=== PATIENT | female | born 1995 | race American Indian/Alaskan Native ===

== ENCOUNTER 2018-08-20 10:18 | Emergency (ER) | payer SELFPAY ==
[2018-08-20 10:46] LABS: Hematocrit 21.4 % (30.3-42.9); Hemoglobin 7.6 gm/dl (10.1-14.3); Mean Corpuscular HGB Conc 36 % (30-34); Mean Corpuscular Volume 88 fl (79-97); Platelet Count 500 K/mm3 (140-440); Red Blood Count 2.45 M/mm3 (3.65-5.03); Red Cell Distribution Width 19.2 % (13.2-15.2)
[2018-08-20] MEDS ORDERED: D5NS 0.2% 1,000 ML IV SCH (11:00)
[2018-08-20 12:04] LABS: Band Neutrophils # (Manual) 0.1 K/mm3; Basophils % (Manual) 0 % (0.0-1.8); Eosinophils % (Manual) 0 % (0.0-4.3); Total Cells Counted 100
--- NOTE | 2018-08-20 12:04 | Emergency Department Report ---
HPI - General Chief Complaint: Sickle Cell Crisis Time Seen by Provider: 08/20/18 11:52 - HPI HPI: 23-year-old [place] Citizen female presents to the emergency department with a complaint of bilateral lower extremity pain, between the knees and the ankles, that she says is a sickle cell pain crisis. This started last night around 3 AM. The patient is currently a student in [place] and came up here last night. She says that she last had a sickle cell pain crisis about 2 weeks ago and was at a hospital in [place]. She denies any abdominal pain, low back pain, vaginal bleeding or discharge. She has not taken anything for her symptoms prior to arrival. ED Past Medical Hx - Past Medical History Hx Sickle Cell Disease: Yes - Social History Smoking Status: Never Smoker Substance Use Type: None - Medications Home Medications: Home Medications Medication Instructions Recorded Confirmed Last Taken Type Hydroxyurea [Droxia] 200 mg PO DAILY #30 capsule 09/29/14 08/20/18 Unknown Rx oxyCODONE /ACETAMINOPHEN [Percocet 1 tab PO Q6HR PRN #10 tablet 09/29/14 08/20/18 Unknown Rx 5/325 mg] Folic Acid [Folvite] 1 mg PO QDAY #30 tablet 08/20/18 Unknown Rx Hydroxyurea [Droxia] 200 mg PO DAILY #30 capsule 08/20/18 Unknown Rx ED Review of Systems ROS: Stated complaint: SICKLE CELL PAIN Other details as noted in HPI Comment: All other systems reviewed and negative Constitutional: denies: chills, fever Eyes: denies: eye pain, vision change ENT: denies: ear pain, throat pain Respiratory: denies: cough, shortness of breath Cardiovascular: denies: chest pain, palpitations Gastrointestinal: denies: nausea, vomiting Genitourinary: denies: dysuria, discharge Musculoskeletal: arthralgia, myalgia Skin: denies: rash, lesions Neurological: denies: headache, weakness Physical Exam - Physical Exam Vital Signs: Vital Signs 08/20/18 10:25 Temperature 98.9 F Pulse Rate 111 H Respiratory 18 Rate Blood Pressure 113/48 O2 Sat by Pulse 96 Oximetry Physical Exam: GENERAL: The patient is well-developed well-nourished. HEENT: Normocephalic. Atraumatic. Patient has moist mucous membranes. EYES: Extraocular motions are intact. Pupils are equal and reactive to light bilaterally. NECK: Supple. Trachea is midline. CHEST/LUNGS: Clear to auscultation. There is no respiratory distress noted. HEART/CARDIOVASCULAR: Regular. There is mild tachycardia. There is no obvious murmur. ABDOMEN: Abdomen is soft, nontender. Patient has normal bowel sounds. There is no abdominal distention. SKIN: Skin is warm and dry. NEURO: The patient is awake, alert, and oriented. The patient is cooperative. The patient has no focal neurologic deficits. The patient has normal speech. MUSCULOSKELETAL: Unable to reproduce patient's leg pain to palpation. No obvious deformity. There is no limitation range of motion. There is no evidence of acute injury. ED Course Vital Signs 08/20/18 10:25 Temperature 98.9 F Pulse Rate 111 H Respiratory 18 Rate Blood Pressure 113/48 O2 Sat by Pulse 96 Oximetry - Consultations Consultation #1: 08/20/18 18:28 I spoke with the [facility] STRIPER on-call, Dr. Greer, regarding treatment of sickle cell pain crisis in early . Dr. Greer says that it is okay to use narcotic pain medication to treat the pain crisis and recommends possible evaluation from heme/onc and/or possible admission. ED Medical Decision Making - Lab Data Result diagrams: 08/20/18 10:32 08/20/18 10:32 - Radiology Data Radiology results: report reviewed Bilateral lower extremity venous Doppler was negative for DVT. - Medical Decision Making This patient presents with the complaint of lower extremity pain that she believes is a sickle cell pain crisis. Independently she also says that she is at about 6 or 7 weeks gestation. She has no complaints of any vaginal bleeding, abdominal or pelvic pain, back pain. Patient's labs show a hemoglobin of 7.6 and a reticulocyte count of 6 that very well could be consistent with her history of sickle cell anemia. Because of the location of her discomfort, her recent trip from [place], and the fact that she is , I sent the patient for bilateral lower extremity venous Dopplers of the resulted as n egative for DVT. We do not have any hematology on-call today. After speaking with the POTTER[facility] STRIPER, the case was presented to the admitting hospitalist, Dr. Sandy, for consultation and/or admission. Critical Care Time: No Critical care attestation.: If time is entered above; I have spent that time in minutes in the direct care of this critically ill patient, excluding procedure time. ED Disposition Clinical Impression: Sickle cell pain crisis, Bilateral leg pain Qualifiers: Weeks of gestation: less than 8 weeks Qualified Code(s): Z3A.01 - Less than 8 weeks gestation of Disposition: TO HOME OR SELFCARE Is pt being admited?: Yes Condition: Stable Prescriptions: Folic Acid [Folvite] 1 mg PO QDAY #30 tablet Hydroxyurea [Droxia] 200 mg PO DAILY #30 capsule Referrals: PRIMARY CARE, [Primary Care Provider] - 3-5 Days Time of Disposition: 18:31
[2018-08-20 12:05] LABS: Anisocytosis 1+; Hypochromasia 2+; Poikilocytosis 2+; Sickle Cells 2+; Target Cells Few
[2018-08-20] MEDS ORDERED: NACL 0.9% 1000 ML 1,000 ML IV ONE (12:05)
[2018-08-20] MEDS ORDERED: DILAUDID IV ONE (12:05)
[2018-08-20 12:06] LABS: Large Platelets Few; Ovalocytes Few; Platelet Estimate Cons
[2018-08-20 12:26] LABS: Calcium 9.5 mg/dL (8.4-10.2)
[2018-08-20] MEDS ORDERED: HYDREA PO SCH (12:33)
[2018-08-20] MEDS ORDERED: FOLVITE PO SCH (12:33)
[2018-08-20] MEDS ORDERED: ROCEPHIN/NS 1 GM/50 ML 1 GM/50 ML BAG IV ONE (12:36)
--- NOTE | 2018-08-20 12:36 | Consultation ---
Medications and Allergies Allergies Allergy/AdvReac Type Severity Reaction Status Date / Time Sulfa (Sulfonamide Allergy Swelling Verified 08/20/18 10:25 Antibiotics) Home Medications Medication Instructions Recorded Confirmed Last Taken Type Hydroxyurea [Droxia] 200 mg PO DAILY #30 capsule 09/29/14 Unknown Rx oxyCODONE /ACETAMINOPHEN [Percocet 1 tab PO Q6HR PRN #10 tablet 09/29/14 Unkno wn Rx 5/325 mg] Active Meds: Active Medications Folic Acid (Folvite) 1 mg PO QDAY ADOLPH Hydroxyurea (Hydrea) 500 mg PO QDAY ADOLPH Dextrose/Sodium Chloride (D5ns 0.2%) 1,000 mls @ 250 mls/hr IV DIRECT ADOLPH Sodium Chloride (Nacl 0.9% 1000 Ml) 1,000 mls @ 999 mls/hr IV BOLUS ONE Stop: 08/20/18 13:05 Last Admin: 08/20/18 12:20 Dose: 999 mls/hr Documented by: Exam - Constitutional Vitals: Temp Pulse Resp BP Pulse Ox 98.9 F 111 H 18 113/48 96 08/20/18 10:25 08/20/18 10:25 08/20/18 10:25 08/20/18 10:25 08/20/18 10:25 Results - Labs CBC & Chem 7: 08/20/18 10:32 08/20/18 10:32 Labs: Abnormal lab results 08/20/18 08/20/18 Range/Units 10:32 10:32 WBC 12.8 H (4.5-11.0) K/mm3 RBC 2.45 L (3.65-5.03) M/mm3 Hgb 7.6 L (10.1-14.3) gm/dl Hct 21.4 L (30.3-42.9) % MCHC 36 H (30-34) % RDW 19.2 H (13.2-15.2) % Plt Count 500 H (140-440) K/mm3 Monocytes % (Manual) 12.0 H (0.0-7.3) % Monocytes # (Manual) 1.5 H (0.0-0.8) K/mm3 Percent Retic 6.25 H (0.78-2.58) % Carbon Dioxide 21 L (22-30) mmol/L Creatinine < 0.2 L (0.7-1.2) mg/dL
[2018-08-20 12:41] LABS: BUN/Creatinine Ratio 10; Blood Urea Nitrogen 2 mg/dL (7-17); Hemolysis Index 39
[2018-08-20 14:17] VITALS: BP 122/50
--- NOTE | 2018-08-20 16:32 | Vascular Lab Report ---
FINAL REPORT EXAM: VL VENOUS DUPLEX LE BILAT HISTORY: LE pain, recent travel, TECHNIQUE: Ultrasound deep venous system of both lower extremities with pulsed and color Doppler emeka luation PRIORS: None. FINDINGS: There is normal sonographic appearance of the deep venous system bilaterally from the common femoral to the visualized proximal calf veins. There is normal compressibility. On pulsed and color Doppler evaluation there is normal vascular flow and venous waveforms. IMPRESSION: Negative. No evidence of deep venous thrombosis
--- NOTE | 2018-09-27 10:45 | Event Note ---
Date: 08/20/18 23 YO Female present to ED for evaluation. Pt found to have volume Depletion, and SCD. Pt treated with supportive care with resolution of symptoms. Pt medically optimized and back to usual state of health. Pt discharged home and instructed to f/u pcp 1wk, hematology 1wk.. - General Limitations: No Limitations General appearance: alert, in no apparent distress - Head Head exam: Present: atraumatic, normocephalic - Eye Eye exam: Present: normal appearance - ENT ENT exam: Present: mucous membranes moist - Neck Neck exam: Present: normal inspection - Respiratory Respiratory exam: Present: normal lung sounds bilaterally. Absent: respiratory distress - Cardiovascular Cardiovascular Exam: Present: regular rate, normal rhythm. Absent: systolic murmur, diastolic murmur, rubs, gallop - GI/Abdominal GI/Abdominal exam: Present: soft, normal bowel sounds - Extremities Exam Extremities exam: Present: normal inspection - Back Exam Back exam: Present: normal inspection - Neurological Exam Neurological exam: Present: alert, oriented X3 - Psychiatric Psychiatric exam: Present: normal affect, normal mood - Skin Skin exam: Present: warm, dry, intact, normal color. Absent: rash
== END 2018-08-20 17:06 | disposition home or self-care (01) ==
LOC: ED 10:18
DX: O99.011 Anemia complicating pregnancy, first trimester (principal); Z3A.01 Less than 8 weeks gestation of pregnancy; Z88.2 Allergy status to sulfonamides
CPT/HCPCS: 36415; 80048; 84702; 84703; 85007; 85025; 85045; 93970; 96365; 96375; 99284; J0696; J1170; J7030